=== PATIENT | male | born 1945 | race Caucasian/White ===

== ENCOUNTER 2018-08-17 12:24 | Emergency (ER) | payer OTHER ==
[~2018-08-17] VITALS: Ht 188 cm; Wt 93.0 kg
--- NOTE | 2018-08-17 12:28 | NUR ---
[facility]
[2018-08-17 12:33] VITALS: BP_SYST 131
--- NOTE | 2018-08-17 12:33 | NUR ---
ER at bedside examining patient.
--- NOTE | 2018-08-17 12:40 | NUR ---
WOUNDS WASHED WITH SALINE, PAT DRY WITH DRY GAUZE, ON LEFT SIDE OF HIS HEAD, LEFT EYEBROW, LEFT CHEEK, AND LEFT FOREARM. PT TOLERATED WELL.
[2018-08-17] MEDS ORDERED: LIDOCAINE 1% 10 MG/ML, 20 ML MDV INJ ONE (14:00)
--- NOTE | 2018-08-17 15:13 | NUR ---
Patient given written and verbal discharge instructions and verbalizes understanding. ER MD discussed with patient the results and treatment provided. Patient in stable condition. ID arm band removed. No Rx given. Patient educated on pain management and to follow up with PMD. Pain Scale 2. Opportunity for questions provided and answered.
[2018-08-17 15:16] VITALS: BP_SYST 125
== END 2018-08-17 15:13 | disposition home or self-care (01) ==
LOC: SED 12:24
DX: S01.112A Laceration without foreign body of left eyelid and periocular area, initial encounter (principal); R03.0 Elevated blood-pressure reading, without diagnosis of hypertension; V29.9XXA Motorcycle rider (driver) (passenger) injured in unspecified traffic accident, initial encounter; Y93.89 Activity, other specified; Y92.410 Unspecified street and highway as the place of occurrence of the external cause; Y99.8 Other external cause status
CPT/HCPCS: 12011; 99283; J2001

== ENCOUNTER 2018-08-26 13:29 | Emergency (ER) | payer OTHER ==
[~2018-08-26] VITALS: Ht 177.8 cm; Wt 78.5 kg
[2018-08-26 13:49] VITALS: BP_SYST 127
[2018-08-26 14:25] VITALS: BP_SYST 127
== END 2018-08-26 14:25 | disposition home or self-care (01) ==
LOC: SED 13:29
DX: S01.112D Laceration without foreign body of left eyelid and periocular area, subsequent encounter (principal); W45.8XXD Other foreign body or object entering through skin, subsequent encounter
CPT/HCPCS: 99281

== ENCOUNTER 2023-05-27 10:28 | Emergency (ER) | payer OTHER ==
[~2023-05-27] VITALS: Ht 182.9 cm; Wt 81.6 kg
[2023-05-27 10:28] VITALS: BP_SYST 102; PULSE 76; RESP 18; TEMP 97; O2SAT 98
--- NOTE | 2023-05-27 10:28 | NUR ---
[id number]AC[facility] IN BED #1 AND TRIAGED. REPORT GIVEN TO ANG
--- NOTE | 2023-05-27 10:29 | NUR ---
[facility], [facility] [place] [phone] [place] [phone]
--- NOTE | 2023-05-27 10:30 | NUR ---
Patient transported to radiology via GURNEY, accompanied by RAD STAFF AND RN.
--- NOTE | 2023-05-27 10:38 | NUR ---
Returned from radiology.
[2023-05-27 11:02] LABS: BASOPHILS % (AUTO) 0.6 % (0.0-2.0); EOSINOPHILS # (AUTO) 0.1 K/uL (0.0-0.4); EOSINOPHILS % (AUTO) 2.4 % (0.0-4.0); HEMATOCRIT 47.5 % (36-54); HEMOGLOBIN 15.3 g/dL (14.0-18.0); LYMPHOCYTES # (AUTO) 0.8 K/uL (1.0-5.5); LYMPHOCYTES % (AUTO) 15.8 % (20.5-51.5); MEAN CORPUSCULAR HEMOGLOBIN 30 pg (27-31); MEAN CORPUSCULAR HGB CONC 32 % (32-36); MEAN CORPUSCULAR VOLUME 94 fL (79.0-98.0); MONOCYTES # (AUTO) 0.5 K/uL (0.0-1.0); MONOCYTES % (AUTO) 10.6 % (1.7-9.3); NEUTROPHILS # (AUTO) 3.6 K/uL (1.8-7.7); NEUTROPHILS % (AUTO) 70.6 % (40.0-70.0); PLATELET COUNT (AUTO) 183 K/uL (130-430); RED BLOOD CELL COUNT(AUTO) 5.06 MIL/uL (4.2-6.2); RED CELL DISTRIBUTION WIDTH 14.5 % (9.0-15.0); WHITE BLOOD COUNT (AUTO) 5.1 K/uL (4.8-10.8)
[2023-05-27 11:12] LABS: ANION GAP 0 (5-15); CALCIUM 7.8 mg/dL (8.4-11.0); CHLORIDE 110 mmol/L (98-107); CREATININE 0.95 mg/dL (0.55-1.30); GLUCOSE 136 mg/dL (74-106); UREA NITROGEN, BLOOD 30 mg/dL (8-21)
[2023-05-27 11:18] LABS: INR 1.1 (0.80-1.20); PROTHROMBIN TIME 11.2 SECS (9.5-12.5)
[2023-05-27 11:27] LABS: ACETAMINOPHEN 2 ug/mL (1-30); ALANINE AMINOTRANSFERASE 32 U/L (12-78); ASPARTATE AMINOTRANSFERASE 23 U/L (10-37); TOTAL BILIRUBIN 0.5 mg/dL (0.0-1.0)
[2023-05-27 11:29] LABS: ALCOHOL, BLOOD < 3 mg/dL (<10)
--- NOTE | 2023-05-27 11:44 | NUR ---
Patient escourted to radiology and back by DEVIN Galloway. Patient woke up following radiology test. and son at bedside and patient found alert and orientated X2. Patient has history of Alzimer's disease .
[2023-05-27 11:46] VITALS: TEMP 97.4
[2023-05-27 11:55] LABS: ACETONE, SERUM NEGATIVE (NEGATIVE)
[2023-05-27] MEDS ORDERED: NACL 0.9% 1,000 ML IV ONE (12:00)
[2023-05-27 16:11] VITALS: BP_SYST 112; PULSE 74; RESP 16; O2SAT 95
--- NOTE | 2023-05-27 16:14 | NUR ---
Patient given written and verbal discharge instructions and verbalizes understanding. ER MD discussed with patient the results and treatment provided. Patient in stable condition. ID arm band removed. IV catheter removed intact and dressing applied, no active bleeding. No prescription given upon discharge. Patient educated on pain management and to follow up with PMD. Pain Scale 0/10. Opportunity for questions provided and answered.
== END 2023-05-27 16:14 | disposition home or self-care (01) ==
LOC: SED 10:28
DX: T50.7X1A Poisoning by analeptics and opioid receptor antagonists, accidental (unintentional), initial encounter (principal); R41.82 Altered mental status, unspecified; Z79.899 Other long term (current) drug therapy; Y92.89 Other specified places as the place of occurrence of the external cause
CPT/HCPCS: 99285; 96360; 70450; 71045; 80053; 82009; 82140; 82550; 83880; 85025; 85610; 85730; 87040; 84484; 36415; 93005; 76376; 83605; 82397; G0482; J7030; G0480; G0481